=== PATIENT | male | born 1980 | race African-American/Black ===

== ENCOUNTER 2020-12-31 01:27 | Emergency (ER) | payer SELFPAY ==
[~2020-12-31] VITALS: Ht 175.3 cm; Wt 137.0 kg
[2020-12-31] MEDS ORDERED: ALBUTEROL FS 2.5 MG/0.5 ML VIAL.NEB NEB ONE (02:00)
[2020-12-31] MEDS ORDERED: ALBUTEROL FS 2.5 MG/0.5 ML VIAL.NEB ONE (02:04)
== END 2020-12-31 03:30 | disposition home or self-care (01) ==
LOC: ER 01:30
DX: J44.9 Chronic obstructive pulmonary disease, unspecified (principal); E66.01 Morbid (severe) obesity due to excess calories; I10 Essential (primary) hypertension; Z68.41 Body mass index [BMI] 40.0-44.9, adult; Z88.5 Allergy status to narcotic agent; Z88.1 Allergy status to other antibiotic agents
CPT/HCPCS: 71045-TC